=== PATIENT | female | born 1990 | race Asian ===

== ENCOUNTER 2017-05-26 16:31 | Emergency (ER) | payer OTHER ==
[~2017-05-26] VITALS: Ht 152.4 cm; Wt 54.4 kg
[~2017-05-26 16:31] MED LIST: ALBU90AE13 INH
[2017-05-26 17:00] LABS: PLATELET COUNT 262 K/uL (152-353)
[2017-05-26 17:14] LABS: POTASSIUM 3.3 mmol/L (3.6-5.2)
[2017-05-26 17:33] VITALS: BP 125/65; TEMP 98.2
== END 2017-05-26 17:39 | disposition home or self-care (01) ==
LOC: ED 16:31
DX: J45.901 Unspecified asthma with (acute) exacerbation (principal); R06.09 Other forms of dyspnea
CPT/HCPCS: 36415; 80053; 85027; 94664; 96374; 99284; J2930

== ENCOUNTER 2017-07-09 02:01 | Outpatient (CLI) | payer OTHER | END 2017-07-09 02:12 | disposition short-term general hospital (02) | LOC: AMB 02:01 | DX: R40.20 Unspecified coma (principal) | CPT/HCPCS: A0425; A0427 ==

== ENCOUNTER 2017-07-09 02:24 | Emergency (ER) | payer OTHER ==
[~2017-07-09] VITALS: Ht 154.9 cm; Wt 54.4 kg
[2017-07-09 02:41] LABS: PLATELET COUNT 320 K/uL (152-353)
[2017-07-09 03:21] LABS: PARTIAL THROMBOPLASTIN TIME 27.4 SECONDS (24.5-33.6)
[2017-07-09 04:03] LABS: POTASSIUM 3.3 mmol/L (3.6-5.2)
[2017-07-09 06:17] VITALS: BP 92/50; TEMP 97.9
== END 2017-07-09 06:18 | disposition home or self-care (01) ==
LOC: ED 02:24
DX: F28 Other psychotic disorder not due to a substance or known physiological condition (principal); F43.29 Adjustment disorder with other symptoms
CPT/HCPCS: 36415; 80053; 80307; 80320; 80329; 81000; 83735; 85027; 85610; 85730; 96360; 96361; 96372; 99283; J3486

== ENCOUNTER 2018-05-28 17:41 | Emergency (ER) | payer OTHER ==
[~2018-05-28] VITALS: Ht 152.4 cm; Wt 58.5 kg
[2018-05-28 19:31] VITALS: BP 111/68; TEMP 97.7
== END 2018-05-28 19:31 | disposition home or self-care (01) ==
LOC: ED 17:41
DX: J45.901 Unspecified asthma with (acute) exacerbation (principal); R05 Cough
CPT/HCPCS: 94664; 96372; 99283; J1100

== ENCOUNTER 2020-06-05 21:25 | Emergency (ER) | payer OTHER ==
[~2020-06-05] VITALS: Ht 152.4 cm; Wt 59.4 kg
[2020-06-05 22:06] LABS: PLATELET COUNT 248 K/uL (152-353)
[2020-06-05 22:11] LABS: POTASSIUM 3.4 mmol/L (3.6-5.2)
[2020-06-05 22:56] VITALS: BP 125/76; TEMP 98.8
== END 2020-06-05 22:57 | disposition home or self-care (01) ==
LOC: ED 21:25
PROVIDERS: Hospitalist
DX: J45.901 Unspecified asthma with (acute) exacerbation (principal); O23.32 Infections of other parts of urinary tract in pregnancy, second trimester; Z3A.18 18 weeks gestation of pregnancy; Z20.822 Contact with and (suspected) exposure to COVID-19
CPT/HCPCS: 80048; 81000; 84702; 85027; 87086; 87088; 87502; 87635; 87651; 94640; 94664; 96365; 96375; 99284; J0696; J2930; U0003